=== PATIENT | male | born 1995 | race Caucasian/White ===

== ENCOUNTER 2018-12-13 09:19 | Emergency (ER) | payer MEDICAID ==
[~2018-12-13] VITALS: Ht 185.4 cm; Wt 68.0 kg
[2018-12-13 09:28] VITALS: Ht 185.4 cm; Wt 68.0 kg
[2018-12-13 10:02] LABS: BASOPHIL % 0.3 % (0-2); PLATELET COUNT 263 x10^3mcL (130-400); RED CELL DISTRIBUTION WIDTH 12.6 % (11.5-14.5)
[2018-12-13 10:15] LABS: CALCIUM 8.4 mg/dL (8.5-10.1); CARBON DIOXIDE 27.7 mmol/L (21-32); CHLORIDE SERUM 105 mmol/L (98-107); CREATININE SERUM 0.9 mg/dL (0.7-1.3); GFR1 > 60 mL/min; GLUCOSE SERUM 92 mg/dL (74-106); POTASSIUM SERUM 4.3 mmol/L (3.5-5.1); SODIUM SERUM 141 mmol/L (136-145)
[2018-12-13 10:20] LABS: ALBUMIN 4.1 g/dL (3.4-5.0); ALKALINE PHOSPHATASE 70 U/L (46-116); ALT/SGPT 12 U/L (16-63); AST/SGOT 13 U/L (15-37); BILIRUBIN TOTAL 1.11 mg/dL (0.20-1.00); HDL CHOLESTEROL 36 mg/dL (40-60); TOTAL PROTEIN, SERUM 7.7 g/dL (6.4-8.2)
[2018-12-13 10:33] LABS: CHOLESTEROL 132 mg/dL (<200)
[2018-12-13 11:43] VITALS: BP 107/76
== END 2018-12-13 11:43 | disposition home or self-care (01) ==
LOC: ED 09:19
PROVIDERS: Emergency Medicine
DX: R55 Syncope and collapse (principal); R23.2 Flushing
CPT/HCPCS: 36415; 84439; G0480; Q0092